=== PATIENT | female | born 1940 | race Caucasian/White ===

== ENCOUNTER 2020-04-26 09:22 | Outpatient (CLI) | payer MEDICARE, SELFPAY ==
--- NOTE | ~2020-04-26 | PE_ITS ---
EXAMINATION: PET skull to mid thigh DATE: 04/26/2020 11:43 INDICATION: Right lower lobe lung nodule. Prior partial right pneumonectomy with suspected recurrence . TECHNIQUE: Blood glucose level was 94 mg/dL. 7.378 mCi of 18-fluorodeoxyglucose (18-FDG) was administ ered i.v. Low dose computed tomography (CT) images were acquired from the base of the brain to the pr oximal thighs for attenuation correction and anatomic localization. Positron emission tomography (PET ) images were acquired in the same distribution beginning 65 minutes after injection. Images includin g fused PET/CT images were reconstructed in axial, coronal, and sagittal planes. Automated exposure c ontrol technique was employed. The dose-length product was 407.61mGy-cm. COMPARISON: CT abdomen and pelvis dated 12/02/2019 FINDINGS: Head/neck: There is symmetric increased activity in the oral cavity, palatine tonsils, parotid glands, submandi bular glands, laryngeal muscles and ocular muscles without CT correlate, likely physiologic. There is increased mucosal uptake in the opacified right maxillary sinus consistent with acute sinusitis. No pathologically enlarged cervical lymphadenopathy or other suspicious foci of increased FDG uptake in the visualized head or neck. Chest: Mild emphysema. Postoperative change of prior right upper lobectomy. 10 x 7 mm spiculated nodule at t he left apex with maximal SUV of 2.6. 1.8 x 1.1 cm spiculated parahilar nodule in the right lower lob e with maximal SUV of 1.7. Calcified nodule in the right lower lobe along with calcified right hilar lymph nodes consistent with old granulomatous disease. Heart size is normal. Atherosclerotic coronary artery calcification. No pericardial or pleural effusion. No pathologically enlarged or FDG avid tho racic lymphadenopathy. Abdomen/pelvis/proximal thighs: Physiologic renal accumulation and excretion of FDG activity in the kidneys, bladder and along portio ns of ureters. Normal degree and heterogenous pattern of increased uptake throughout the liver withou t radiologic correlate or dominant FDG avid lesion. Few small calcified gallstones at the neck of the normal-appearing gallbladder. The pancreas, spleen and bilateral adrenal glands are normal. Mild to moderate uptake scattered throughout the bowels without radiologic correlate, also likely physiologic . Normal appendix. No other abnormal foci of increased FDG uptake or pathologically enlarged lymphade nopathy in the abdomen, pelvis or proximal thighs. Musculoskeletal: 30 degree lumbar levoscoliosis with moderate to severe spondylosis. No suspicious lytic, blastic or F DG avid bone lesions. IMPRESSION: 1. Mild increased FDG uptake associated with a couple spiculated nodules measuring 10 x 7 mm at the l eft apex and 1.8 x 1.1 cm in the perihilar right lower lobe. Differential for both nodules would incl ude malignancy either primary or metastatic and pneumonia or other inflammatory nodule. Could conside r percutaneous biopsy of the left apical nodule. The right perihilar nodule would not be amenable to percutaneous biopsy given its central location along the hilar vessels although would likely be sharee ble to endobronchial biopsy with ultrasound guidance (EBUS). 2. No other lesions suspicious for metastatic disease in the chest, abdomen or pelvis. 3. Right maxillary sinusitis. 4. Cholelithiasis. Reviewed, dictated and finalized at location A. IMPRESSION: 1. Mild increased FDG uptake associated with a couple spiculated nodules measur ing 10 x 7 mm at the left apex and 1.8 x 1.1 cm in the perihilar right lower lo be. Differential for both nodules would include malignancy either primary or me tastatic and pneumonia or other inflammatory nodule. Could consider percuta
[2020-04-26 10:18] LABS: Glucose Point of Care 94 (65-105)
== END 2020-04-26 09:23 | disposition home or self-care (01) ==
PROVIDERS: PCP Family Medicine
DX: R91.1 Solitary pulmonary nodule (principal); R91.8 Other nonspecific abnormal finding of lung field; J01.00 Acute maxillary sinusitis, unspecified; K80.20 Calculus of gallbladder without cholecystitis without obstruction
CPT/HCPCS: 78815; A9552

== ENCOUNTER 2021-10-30 08:31 | Outpatient (CLI) | payer MEDICARE, SELFPAY ==
--- NOTE | ~2021-10-30 | XR_ITS ---
EXAMINATION: XR hip LT min 2V DATE: 10/30/2021 09:01 INDICATION: Chronic left hip pain. TECHNIQUE: 3 views of left hip were obtained. COMPARISON: Pelvis radiographs 08/02/2007 FINDINGS: Bone alignment is normal. No fracture. There is mild left hip osteoarthritis. Osteitis pubi s is noted. IMPRESSION: 1. Mild left hip osteoarthritis. Reviewed, dictated and finalized at location A. [employer]
== END 2021-10-30 08:32 | disposition home or self-care (01) ==
PROVIDERS: PCP Family Medicine; Visit Provider Nurse Practitioner Family
DX: M16.12 Unilateral primary osteoarthritis, left hip (principal); M86.8X8 Other osteomyelitis, other site
CPT/HCPCS: 73502

== ENCOUNTER 2023-07-05 13:03 | Emergency (ER) | payer MEDICARE, SELFPAY ==
--- NOTE | ~2023-07-05 | XR_ITS ---
EXAMINATION: XR tibia fibula RT 2V DATE: 07/05/2023 13:43 INDICATION: Right lower leg pain. TECHNIQUE: 2 views of right tibia and fibula on 4 radiographs were obtained. COMPARISON: None. FINDINGS: Bone alignment is normal. No fracture. There is mild right knee osteoarthritis. No knee cong nt effusion. IMPRESSION: 1. Mild right knee osteoarthritis. Reviewed, dictated and finalized at location A.
[2023-07-05 13:10] VITALS: BP 162/71; PULSE 79; RESP 16; TEMP 36.7; O2SAT 95
--- NOTE | 2023-07-05 13:57 | ED.WOUNDLAC ---
HPI - Wound/Laceration General Chief Complaint: Wound/Laceration Stated Complaint: right leg wound Time Seen by Provider: 07/05/23 13:38 Source: patient and family (significant other) Limitations: no limitations History of Present Illness HPI narrative: Patient presents to the emergency department for a fall and resultant right lower extremity injury. Patient accompanied by , who also helped provide history. One hour prior to arrival. Patient was walking when she tripped over a cement curb that is used to prevent a car from pulling up too much And she tripped over this and hit her right morrissey on the curb causing mild blood loss. Patient admits to being able to ambulate since the injury. Patient does not know when her last tetanus shot was. Patient denies being a diabetic. Patient denies loss of consciousness, or any other injuries. Patient denies numbness, weakness, back pain, nausea, vomiting. Patient has not tried anything for the pain which is localized to the region where she has a cut on her right leg. Patient denies fever, discharge from the wound, decreased range of motion. Patient did put a bandage on the wound. Related Data Home Medications Medication Instructions Recorded Confirmed budesonide 3 mg 3 mg PO DAILY 10/17/19 12/02/19 capsule,delayed,extended release Allergies Allergy/AdvReac Type Severity Reaction Status Date / Time potassium iodide Allergy Unknown Skin Verified 07/05/23 13:22 Reaction atenolol AdvReac Unknown diarrhea Verified 07/05/23 13:22 chlorthalidone [Tenoretic] AdvReac Unknown diarrhea Verified 07/05/23 13:22 lisinopril AdvReac Unknown Cough Verified 07/05/23 13:22 losartan AdvReac Unknown Unknown Verified 07/05/23 13:22 omeprazole AdvReac Unknown diarrhea Verified 07/05/23 13:22 Review of Systems Review of Systems: A 10 system review of systems was completed on the patient and is negative except for what is stated in the HPI. Nursing and ancillary documentation was reviewed. REPLACED BY [facility] Past Medical History Medical History (Updated 07/06/23 @ 00:01 by Gigi Yung) Arthritis Bronchitis Colitis Crohn's disease Glaucoma Hepatitis A Hypertension IBS (irritable bowel syndrome) Lymphoma Treated with radiation Osteopenia in hip Surgical History Surgical History H/O dilation and curettage History of eyelid surgery Left eyelid marginal zone lymphoma History of thumb surgery Hx of tonsillectomy S/P tendon repair Family History Family History Mother Hypertension Family history of glaucoma Family history of cardiovascular disease Father Family history of cardiovascular disease CHF (congestive heart failure), NYHA class I Social History Social History Social History: She is to Bobby. Bobby is a [id number]. Patient is considering DNR. She did have 3 children but now has 2 she quit smoking in 1984 after she smoked for 20 years a pack a cigarettes a day. She has a drinks 1 glass of wine every other day but has quit that was over 20 years ago. She is retired contracts officer. Smoking packs per day: 1 Smoking cigarettes per day: 20.0 Years smoked: 20 Smoking pack-years: 20.00 Smoking status: Former smoker Second hand tobacco smoke exposure: No Smoking end date: 11/16/84 Alcohol intake: former Substance use: never Substance use type: does not use Living arrangements: with family Occupation/Education: retired Gender identity (if verbalized by the patient): Female Spiritual care concerns: No Agree to blood products: No Comments At time of signature, I have reviewed and agree with nursing past medical, surgical, social and family history unless otherwise noted. Please see the nursing chart for further information. There is no relevant family history pertinent
[2023-07-05] MEDS: HYDROcodone/acetaminophen (*CRX) 5-325 MG TABLET 1 TAB PO (14:13)
[2023-07-05] MEDS: TETANUS,DIPHTHERIA,AC PERTUSSIS ADULT (0.5 ML) BOOSTRIX IM (14:14)
[2023-07-05] MEDS: CEPHALEXIN 500 MG CAPSULE PO (14:14)
[2023-07-05] MEDS: NEOMYCIN/POLYMYXIN/BACITRACIN OINTMENT 15 GM TUBE 1 APPLIC TOPICAL (14:30)
== END 2023-07-05 14:40 | disposition home or self-care (01) ==
LOC: ANHED 14:17
PROVIDERS: Emergency Provider Student in an Organized Health Care Education/Training Program; PCP Family Medicine
DX: S81.811A Laceration without foreign body, right lower leg, initial encounter (principal); I10 Essential (primary) hypertension; Z87.891 Personal history of nicotine dependence; Z23 Encounter for immunization; W01.198A Fall on same level from slipping, tripping and stumbling with subsequent striking against other object, initial encounter
CPT/HCPCS: 73590; 90471; 90715; 99283; A9270